=== PATIENT | female | born 1985 | race Caucasian/White ===

== ENCOUNTER 2019-05-03 15:05 | Emergency (ER) | payer OTHER ==
[2019-05-03 15:36] LABS: #Eosinphils 0.1 thou/uL (0.0-0.7); #Lymphocytes 2.9 thou/uL (1.20-3.40); #Monocytes 0.6 thou/uL (0.11-0.59); #Neutrophils 5.3 thou/uL (1.40-6.50); %Basophils 0.4 % (0.0-1.0); %Eosinophils 1.5 % (0.0-10.0); %Lymphocytes 32.1 % (21.0-51.0); %Monocytes 6.5 % (0.0-10.0); %Neutrophils 59.5 % (42.0-75.0); Hemoglobin 13.7 g/dL (12.0-16.0); Mean Corpuscular Hemoglobin 31.6 pg (27.0-31.0); Mean Corpuscular Volume 92.8 fL (78.0-98.0); Mean Platelet Volume 6.6 fL (7.4-10.4); Platelet Count 369 thou/uL (130-400); RBC Distribution Width 11.3 % (11.5-14.5); Red Blood Cell (RBC) Count 4.33 mill/uL (4.20-5.40); White Blood Cell (WBC) Count 8.9 thou/uL (4.8-10.8)
[2019-05-03] MEDS ORDERED: HYDROcodone/Acetaminophen 5/325 mg Tablet ONE (15:37)
--- NOTE | 2019-05-03 15:48 | RAD ---
XR Chest 1 View Portable HISTORY: Chest pain COMPARISON: None FINDINGS: The heart size is normal. The lungs are well expanded without focal areas of consolidation, pneumothorax or pleural effusions. There is scoliosis of the spine. IMPRESSION: No radiographic evidence of acute cardiopulmonary process.
[2019-05-03 15:58] LABS: ALT (SGPT) 7 U/L (8-55); AST (SGOT) 12 U/L (5-34); Albumin 4.2 g/dL (3.5-5.0); Alkaline Phosphatase 62 U/L (40-150); Anion Gap 11 mmol/L (10-20); BUN (Urea Nitrogen) 9 mg/dL (7.0-18.7); Bilirubin, Total 0.2 mg/dL (0.2-1.2); Calc. Creatinine Clearance 0 mL/min (70-130); Calcium 9.4 mg/dL (7.8-10.44); Carbon Dioxide 25 mmol/L (22-29); Chloride 103 mmol/L (98-107); Estimated GFR-MDRD 78; Glucose 95 mg/dL (70-105); Potassium 3.9 mmol/L (3.5-5.1); Protein, Total 7.2 g/dL (6.0-8.3); Sodium 135 mmol/L (136-145)
[2019-05-03 16:12] LABS: BHCG - Serum Negative (NEGATIVE); Pregs Control Background? CLEAR/WHITE (CLR/WHITE); Pregs Control Bar Appear? YES (CONTROL BAR)
--- NOTE | 2019-05-07 13:35 | EKG ---
Test Reason : Blood Pressure : / mmHG Vent. Rate : 112 BPM Atrial Rate : 112 BPM P-R Int : 148 ms QRS Dur : 084 ms QT Int : 294 ms P-R-T Axes : 033 025 024 degrees QTc Int : 401 ms Sinus tachycardia Possible Left atrial enlargement Borderline ECG Confirmed by CONSTANCE SANCHEZ ([id number]), editor in chief JERRY KHAN ([id number]) on 05/07/2019 1:35:10 PM Referred By: Confirmed By:CONSTANCE SANCHEZ
== END 2019-05-03 16:50 | disposition home or self-care (01) ==
LOC: ERS 15:05
DX: M54.6 Pain in thoracic spine (principal); F90.9 Attention-deficit hyperactivity disorder, unspecified type; Z79.899 Other long term (current) drug therapy
CPT/HCPCS: 36415; 71045; 80053; 84484; 84703; 85025; 85379; 93005

== ENCOUNTER 2021-02-26 10:27 | Outpatient (CLI) | payer OTHER | END 2021-02-26 10:28 | disposition home or self-care (01) | LOC: BICMRI 10:27 | PROVIDERS: ATTEND Anesthesiology Pain Medicine | DX: M51.16 Intervertebral disc disorders with radiculopathy, lumbar region (principal); M47.26 Other spondylosis with radiculopathy, lumbar region; M41.9 Scoliosis, unspecified; Q76.49 Other congenital malformations of spine, not associated with scoliosis | CPT/HCPCS: 72148 ==

== ENCOUNTER 2022-03-03 10:52 | Outpatient (CLI) | payer BC ==
[2022-03-03] MEDS ORDERED: Iopamidol 370 76% 100 ML VIAL ONE (11:33)
== END 2022-03-03 10:53 | disposition home or self-care (01) ==
LOC: CT 10:52
PROVIDERS: ATTEND Family Medicine
DX: E27.8 Other specified disorders of adrenal gland (principal)
CPT/HCPCS: 74178; Q9967

== ENCOUNTER 2024-04-08 14:52 | Outpatient (CLI) | payer BC | END 2024-04-08 14:53 | disposition home or self-care (01) | LOC: BICMAMMO 14:52 | PROVIDERS: ATTEND Family Medicine | DX: Z12.31 Encounter for screening mammogram for malignant neoplasm of breast (principal) | CPT/HCPCS: 77063; 77067 ==